=== PATIENT | male | born 2005 | race Caucasian/White ===

== ENCOUNTER 2025-07-10 15:35 | Emergency (ER) | payer SELFPAY ==
[~2025-07-10] VITALS: Ht 175.3 cm; Wt 72.0 kg
[2025-07-10 15:38] VITALS: O2SAT 97
[2025-07-10] MEDS: ONDANSETRON HCL 4MG/2ML INJ IV ONE (16:55)
[2025-07-10] MEDS: SODIUM CHLORIDE 0.9% 1,000 ML IV ONE (16:56)
[2025-07-10 17:44] VITALS: BP 101/59; PULSE 68; RESP 16; TEMP 37.2; O2SAT 100
== END 2025-07-10 18:10 | disposition home or self-care (01) ==
LOC: ER 15:35
DX: F10.129 Alcohol abuse with intoxication, unspecified (principal); R41.82 Altered mental status, unspecified; Y90.9 Presence of alcohol in blood, level not specified
CPT/HCPCS: 96361; 96374; 99283; J2405; J7030; Z7610